=== PATIENT | male | born 1960 | race Caucasian/White ===

== ENCOUNTER → 2017-03-20 | Outpatient (CLI) | payer BC ==
[2017-03-20 19:10] LABS: LYME DISEASE AB IGG NEG (NEG); LYME DISEASE AB IGM NEG (NEG)
== END | disposition home or self-care (01) ==
LOC: C.LABSPEC 16:36
PROVIDERS: ATTEND Internal Medicine
DX: T75.89XA Other specified effects of external causes, initial encounter (principal); X58.XXXA Exposure to other specified factors, initial encounter

== ENCOUNTER 2021-09-21 16:14 | Observation (INO) ==
[2021-09-21 17:10] LABS: Basophils # (auto) 0.08 K/uL (0-0.2); Eosinophils # (auto) 0.12 K/uL (0-0.5); Eosinophils % (auto) 1.6 %; Hematocrit (blood only) 42.3 % (42-52); Lymphocytes # (auto) 1.75 K/uL (1.2-3.4); Lymphocytes % (auto) 22.7 %; Mean Corpuscular Hgb Conc 35.5 g/dL (32-36); Mean Corpuscular Volume 81.8 fL (80-100); Mean Platelet Volume 9.9 fL (7.4-10.4); Monocytes % (auto) 6.5 %; Neutrophils # (auto) 5.27 K/uL (1.4-6.5); Neutrophils % (auto) 68.2 %; Platelet Count 359 K/uL (130-400); RDW Coefficient of Variation 13.8 % (11.5-14.5); RDW Standard Deviation 41.4 fL (36.4-46.3); Red Blood Count 5.17 M/uL (4.7-6.1); White Blood Count 7.72 K/uL (4.8-10.8)
[2021-09-21 17:22] LABS: Partial Thromboplastin Time 28.8 Seconds (21.0-31.0); Prothrombin Time 10.9 Seconds (9.0-12.0)
[2021-09-21] MEDS ORDERED: ASPIRIN CHEW 324 MG PO STA (17:25)
[2021-09-21 17:33] LABS: Troponin I < 0.03 ng/ml (0-0.04)
[2021-09-21 17:34] LABS: Alanine Aminotransferase 20 U/L (7-52); Albumin Globulin Ratio 1.8 (0.9-2); Albumin Level 4.4 gm/dl (3.4-5.0); Alkaline Phosphatase 65 U/L (34-104); Anion Gap 8 (3-11); Aspartate Aminotransferase 20 U/L (13-39); BUN Creatinine Ratio 21.3 (10-20); Bilirubin,Total 0.3 mg/dl (0.2-1.0); Blood Urea Nitrogen 20 mg/dl (6-23); Calcium 9.3 mg/dl (8.5-10.1); Carbon Dioxide 26 mmol/L (21-32); Chloride 105 mmol/L (98-107); Creatinine Clr Calc Pharmacy 84.5 ml/min; Est GFR (African American) 102.4 ml/min; Est GFR (Non-African American) 88.4 ml/min; Globulin 2.5 gm/dl (2.5-4.0); Glucose 95 mg/dl (70-99(Fasting)); Lipase 47 U/L (11-82); Magnesium 2.1 mg/dl (1.7-2.4); Potassium 3.4 mmol/L (3.5-5.1); Sodium 139 mmol/L (136-145); Total Protein 6.9 gm/dl (6.0-8.3)
--- NOTE | 2021-09-21 17:34 | Emergency Department Note ---
Impression & Plan Precordial chest pain, HTN (hypertension) ED Provider Note NAME: STEFFEN COBB AGE: 60 SEX: M : 1960 ARRIVES VIA: Ambulance INFORMANT: [Patient] ED PROVIDER(S): [Grey Hebert MD] CHIEF COMPLAINT: Chest pain HISTORY OF PRESENT ILLNESS: The patient is a 60-year-old male who presents to the ER with a few minutes of left chest pain. The pain was pressure-like and a 3/10. It came on while he was sitting. He was dizzy with it. His blood pressure increased and his pulse increased. He was not short of breath, no sweating, no nausea. The patient states he is now pain-free and his blood pressure seems to be improving. The patient was recently seen by his doctors office for high blood pressure. He was started on lisinopril. He took his first dose today. He was also told that his EKG was abnormal and he is scheduled for a stress test this upcoming Friday, in 3 days. He has no known diagnosed coronary disease. REVIEW OF SYSTEMS: See HPI for pertinent positives and negatives. A total of ten systems were reviewed and were otherwise negative. PMHx/PSHx: See Below SOCIAL HISTORY: See Below. PHYSICAL EXAM: GENERAL: Patient is in no acute distress. HEENT: No acute trauma, normocephalic atraumatic, mucous membranes moist, no nasal congestion, no scleral icterus. NECK: No stridor, no adenopathy, no meningismus, trachea is midline. LUNGS: Clear to auscultation bilaterally, no wheeze, no rhonchi, breath sounds equal. HEART: Bradycardic, regular rhythm, no murmurs. ABDOMEN: Soft, nontender, bowel sounds positive, no hernias, no peritonitis. EXTREMITIES: No cyanosis or edema, full range of motion of all the joints without pain or difficulty, no signs for acute trauma. NEUROLOGIC: Oriented x 3, no acute motor or sensory deficits, no focal weakness. SKIN: No rash, no jaundice, no diaphoresis. DIFFERENTIAL DIAGNOSIS: Cardiac ischemia, aortic dissection, pulmonary embolism, pneumothorax, pneumonia, pericarditis, myocarditis, esophageal rupture, GERD, cholecystitis, pancreatitis, musculoskeletal, as well as other pathologies. EMERGENCY DEPARTMENT COURSE/PROCEDURES: ECG: Indication was chest pain. The ECG shows a sinus bradycardia with a first-degree AV block. The rate is 59. There are inverted T waves in the lateral leads. No ST elevation. No PVCs. The QTc is 421. No old ECGs available for comparison. Continuous Cardiac Monitoring: An order was placed for continuous cardiac monitoring. The monitor shows a rate of 60 with sinus rhythm with a first- degree block. MEDICAL DECISION MAKING: There is no leukocytosis or concerning anemia. There is a normal platelet count. No coagulopathy. Potassium was a bit low at 3.4, no renal failure. No concerning liver enzyme elevation. No evidence for pancreatitis. ECG showed a sinus bradycardia, there were some T wave changes noted, no ST elevation. Cardi ac enzyme testing x1 does not show any evidence for acute cardiac injury. Urinalysis does not show infection. Covid testing returned negative. Chest x- ray did not show mediastinal widening, pneumonia or pneumothorax. Patient was given oral aspirin for cardioprotective purposes. He was given IV labetalol for his higher blood pressure. The patient is in need of a hospital stay. He presents with chest pain which certainly could be cardiac in nature. He has some EKG changes. He has some car diac risk factors. I spoke with the patient, I talked to case management. The on-call hospitalist was consulted. Past Med/Surg History Medical History Allergic conjunctivitis Allergic rhinitis due to cats Allergic rhinitis due to dust Allergic rhinitis due to other allergen Cervical radiculopathy at C8 Closed fibular fracture Surgical History S/P nasal surgery S/P tonsillectomy Family History (Updated 09/21/21 @ 19:17 by DONALD Croft) Father Cerebral aneurysm, Onset Age: 56 Coronary heart disease Other Allergic rhinitis Colorectal cancer Dyslipidemia Social History Smoking Status: Never smoker Hx Alcohol Use: Yes Hx Substance Use: No Preferred Language: Arabic Communication Ability: Effective Farm Demonstrator Required: No Beliefs That Will Affect Care: None marital status: Single Current Living Situation: Alone current occupational status: employed Other Information That Helps Us Care for You: No Feels Safe at Home: Yes Assistive Devices: Glasses Allergies Allergies Allergy/AdvReac Type Severity Reaction Status Date / Time amoxicillin Allergy Unknown Unknown Verified 09/21/21 18:26 Penicillins Allergy Unknown Unknown Verified 09/21/21 18:26 thiopental [From Pentothal] Allergy Unknown Unknown Verified 09/21/21 18:26 Home Meds Home Medications Medication Instructions Recorded Confirmed fexofenadine 180 mg tablet 180 mg PO DAILY 03/21/19 08/13/21 (Tonia Allergy) omega-3 fatty acids [Fish Oil PO 03/21/19 08/13/21 Concentrate] epigallocatechin gallate(bulk) MISCELLANEOUS 04/11/20 08/13/21 [green tea extract] Previous Rx's Medication Instructions Recorded olopatadine 0.2 % eye drops 1 drops OP DAILY #2.5 ml 04/26/19 albuterol sulfate 90 mcg/actuation 2 puff INH Q4H PRN #18 gm 10/09/20 aerosol inhaler (Ventolin HFA) montelukast 10 mg tablet See Rx Instructions .ROUTE 01/08/21 .COMPLEX #30 tablet lifitegrast 5 % eye drops in a 1 drp OP BID #60 ea 04/12/21 dropperette (Xiidra) fluticasone 500 mcg-salmeterol 50 See Rx Instructions .ROUTE 07/16/21 mcg/dose blistr powdr for .COMPLEX #60 disk inhalation (Advair Diskus) Results & Data (ED) Vital Signs Vital Signs - 24 hr 09/21/21 16:23 09/21/21 16:30 09/21/21 17:00 Temperature 36.9 C Temperature Source Oral Pulse Rate 60 56 L Pulse Rate from SpO2 Sensor 56 L Respiratory Rate 12 12 Respiratory Effort / Characteristics Non-Labored Respiratory Depth Normal Respiratory Pattern Regular Blood Pressure 172/96 H 154/92 H Blood Pressure Mean 121 112 Blood Pressure Position Semi-fowlers Pulse Oximetry 98 98 97 Oxygen Delivery Method Room Air Room Air Room Air Sepsis Recent Fever Within 48 Hours No Sepsis New/Unexplained Change in Mental Status N/A Sepsis Action Taken by Nursing No Action Required 09/21/21 17:16 09/21/21 17:44 09/21/21 17:46 Temperature Temperature Source Pulse Rate 56 L 59 L Pulse Rate from SpO2 Sensor 57 L 57 L Respiratory Rate 12 18 Respiratory Effort / Characteristics Respiratory Depth Respiratory Pattern Blood Pressure 162/95 H Blood Pressure Mean 117 Blood Pressure Position Pulse Oximetry 98 96 Oxygen Delivery Method Room Air Room Air Sepsis Recent Fever Within 48 Hours Sepsis New/Unexplained Change in Mental Status Sepsis Action Taken by Nursing 09/21/21 18:00 Temperature Temperature Source Pulse Rate 56 L Pulse Rate from SpO2 Sensor 55 L Respiratory Rate 12 Respiratory Effort / Characteristics Respiratory Depth Respiratory Pattern Blood Pressure 162/88 H Blood Pressure Mean 112 Blood Pressure Position Pulse Oximetry 94 Oxygen Delivery Method Room Air Sepsis Recent Fever Within 48 Hours Sepsis New/Unexplained Change in Mental Status Sepsis Action Taken by Usp Medications Current Medication List: was personally reviewed by me Laboratory Data Attestation: I reviewed the patient's lab results. Result diagrams: 09/21/21 16:31 09/21/21 16:31 Lab Results 09/21/21 09/21/21 09/21/21 Range/Units 16:31 16:31 16:31 WBC 7.72 (4.8-10.8) K/uL RBC 5.17 (4.7-6.1) M/uL Hgb 15.0 (14.0-18.0) g/dL Hct 42.3 (42-52) % MCV 81.8 (80-100) fL MCH 29.0 (25-34) pg MCHC 35.5 (32-36) g/dL RDW Std Deviation 41.4 (36.4-46.3) fL RDW Coeff of Brenda 13.8 (11.5-14.5) % Plt Count 359 (130-400) K/uL MPV 9.9 (7.4-10.4) fL Immature Gran % (Auto) 0.0 % Neut % (Auto) 68.2 % Lymph % (Auto) 22.7 % Webster % (Auto) 6.5 % Eos % (Auto) 1.6 % Baso % (Auto) 1.0 % Neut # (Auto) 5.27 (1.4-6.5) K/uL Lymph # (Auto) 1.75 (1.2-3.4) K/uL Webster # (Auto) 0.50 (0.11-0.59) K/uL Eos # (Auto) 0.12 (0-0.5) K/uL Baso # (Auto) 0.08 (0-0.2) K/uL Immature Gran # (Auto) 0.00 (0.00-0.02) K/uL PT 10.9 (9.0-12.0) Seconds INR 1.0 (0.9-1.1) APTT 28.8 (21.0-31.0) Seconds PTT Ratio 1.0 Sodium 139 (136-145) mmol/L Potassium 3.4 L (3.5-5.1) mmol/L Chloride 105 (98-107) mmol/L Carbon Dioxide 26 (21-32) mmol/L Anion Gap 8 (3-11) BUN 20 (6-23) mg/dl Creatinine 0.94 (0.6-1.4) mg/dl Est Cr Clr Drug Dosing 84.5 ml/min Est GFR ( Amer) 102.4 ml/min Est GFR (Non-Af Amer) 88.4 ml/min BUN/Creatinine Ratio 21.3 H (10-20) Glucose 95 (70-99(Fasting)) mg/dl Calcium 9.3 (8.5-10.1) mg/dl Magnesium 2.1 (1.7-2.4) mg/dl Total Bilirubin 0.3 (0.2-1.0) mg/dl AST 20 (13-39) U/L ALT 20 (7-52) U/L Alkaline Phosphatase 65 (34-104) U/L Troponin I < 0.03 (0-0.04) ng/ml Total Protein 6.9 (6.0-8.3) gm/dl Albumin 4.4 (3.4-5.0) gm/dl Globulin 2.5 (2.5-4.0) gm/dl Albumin/Globulin Ratio 1.8 (0.9-2) Lipase 47 (11-82) U/L SARS-CoV-2, RNA, NAAT (NEGATIVE) 09/21/21 Range/Units 16:31 WBC (4.8-10.8) K/uL RBC (4.7-6.1) M/uL Hgb (14.0-18.0) g/dL Hct (42-52) % MCV (80-100) fL MCH (25-34) pg MCHC (32-36) g/dL RDW Std Deviation (36.4-46.3) fL RDW Coeff of Brenda (11.5-14.5) % Plt Count (130-400) K/uL MPV (7.4-10.4) fL Immature Gran % (Auto) % Neut % (Auto) % Lymph % (Auto) % Webster % (Auto) % Eos % (Auto) % Baso % (Auto) % Neut # (Auto) (1.4-6.5) K/uL Lymph # (Auto) (1.2-3.4) K/uL Webster # (Auto) (0.11-0.59) K/uL Eos # (Auto) (0-0.5) K/uL Baso # (Auto) (0-0.2) K/uL Immature Gran # (Auto) (0.00-0.02) K/uL PT (9.0-12.0) Seconds INR (0.9-1.1) APTT (21.0-31.0) Seconds PTT Ratio Sodium (136-145) mmol/L Potassium (3.5-5.1) mmol/L Chloride (98-107) mmol/L Carbon Dioxide (21-32) mmol/L Anion Gap (3-11) BUN (6-23) mg/dl Creatinine (0.6-1.4) mg/dl Est Cr Clr Drug Dosing ml/min Est GFR ( Amer) ml/min Est GFR (Non-Af Amer) ml/min BUN/Creatinine Ratio (10-20) Glucose (70-99(Fasting)) mg/dl Calcium (8.5-10.1) mg/dl Magnesium (1.7-2.4) mg/dl Total Bilirubin (0.2-1.0) mg/dl AST (13-39) U/L ALT (7-52) U/L Alkaline Phosphatase (34-104) U/L Troponin I (0-0.04) ng/ml Total Protein (6.0-8.3) gm/dl Albumin (3.4-5.0) gm/dl Globulin (2.5-4.0) gm/dl Albumin/Globulin Ratio (0.9-2) Lipase (11-82) U/L SARS-CoV-2, RNA, NAAT NEGATIVE (NEGATIVE) Administered Medications Montelukast Sodium (Montelukast Sodium 10 Mg Tablet) 1 mg PO HS REGINO Stop: 10/21/21 21:53 Last Admin: 09/21/21 22:31 Dose: 1 mg Documented by: [id number] Discontinued Medications Aspirin (Aspirin Chew 324 Mg) 324 mg PO NOW STA Stop: 09/21/21 17:26 Last Admin: 09/21/21 17:46 Dose: 324 mg Documented by: [id number] Labetalol HCl (Labetalol Hcl Iv 5 Mg/Ml 20ml) 10 mg IV NOW STA Stop: 09/21/21 17:47 Last Admin: 09/21/21 18:21 Dose: 10 mg Documented by: [id number] Cosigned by: [id number] Imaging Data Radiologist's Impression: Chest X-Ray 09/21/21 17:02 XR chest 1V portable HISTORY: Atypical Chest Pain COMPARISON: None. FINDINGS: The lungs are clear. The heart is mildly enlarged. No pleural effusions. No pneumothorax. No evidence for pulmonary edema. IMPRESSION: Mild cardiomegaly. ACT 112: Negative or not required by law. Electronically signed by: Ravi Varner M.D. 09/21/2021 5:37 PM Discharge Plan Visit Data Chief Complaint: Chest Pain ED Provider: Grey Hbeert Discharge Problem: Precordial chest pain, HTN (hypertension) Patient Disposition: Admitted As Inpatient Condition: Good Discharge Instructions Interventions: ED Discharge Assessment Last Done: 09/21/21 21:17
--- NOTE | 2021-09-21 17:39 | XRay Report ---
XR chest 1V portable HISTORY: Atypical Chest Pain COMPARISON: None. FINDINGS: The lungs are clear. The heart is mildly enlarged. No pleural effusions. No pneumothorax. N o evidence for pulmonary edema. IMPRESSION: Mild cardiomegaly. ACT 112: Negative or not required by law. Electronically signed by: Ravi Varner M.D. 09/21/2021 5:37 PM
[2021-09-21] MEDS ORDERED: LABETALOL HCL IV 5 MG/ML 20ML IV STA (17:46)
[2021-09-21] MEDS ORDERED: ACETAMINOPHEN 325 MG TAB PO PRN (18:13)
[2021-09-21] MEDS ORDERED: NITROGLYCERIN SL 0.4 MG/TAB TAB SL PRN (18:13)
--- NOTE | 2021-09-21 19:06 | History & Physical Report ---
Date of Service September 21, 2021 Assessment & Plan (1) Chest pain: Plan: Chest pressure associated with dizziness, increase HR and increase BP - Troponin ~ 1 hour post episode-negative - Trend Troponin I as may be early to detect - ECG with no comparison but without dyanmic ST elevation or depression - ECHO in morning - NTG SL for chest pain, ECG with chest pain (2) HTN (hypertension): Plan: Newly diagnosed HTN over the past week - started Lisinopril 10mg PO 09/21/21 - Without evidence of organ dysfunction - Agent control may be limited by his underlying HR - Trend his numbers overnight - UA now evaluate for protein in urine - Treat BP if associated with symptoms or his troponin actually increase - Patient declines that any new medications or any increase to his allergy meds. no other illness and no other use of OTC allergy/cough/cold meds (3) Asthma: Plan: Well controlled on current medications - Continue home regimine (4) Allergic rhinitis: Plan: As above History of Present Illness Primary Care Provider: Addi Page MD 60 YOM with past medical history of: Obesity, HTN (newly diagnosed), Seasonal Allergic Rhinitis, asthma. Patient comes to the EMD for complaints of chest pain. The pain was located in his left upper chest and was pressure like in nature, and was associated with some dizziness and noted increase in HR. This occurred around [id number] today. The patient felt the pressure in his chest and went to check his blood pressure and he reports it as 200/100 and noting his HR was 104. The pressure and dizziness lasted for only about a minute. He re- checked his blood pressure and it continued to be elevated so he called EMS. In the EMD he was still noted to be hypertensive >160, but remains without chest pain. He had routine labs performed to include a Troponin I, ECG, and CXR completed. We have no ECG on file for comparison. His Troponin I was negative. He was given an ASA and 10mg of Labetalol in the EMD for his BP. Patient will be observed overnight to trend his BP, lipids in morning, HGB A1c in morning and ECHO in am. The patient reports that he has overall has been feeling well, he went for a routine colonoscopy last week and was noted to be hypertensive before the procedure and following the procedure, he was referred back to his PCP Addi Earl. He reports that he went to his appointment, had an ECG done that had some changes to it, and remained hypertensive at that appointment. He was started on Lisinopril 10mg orally and took his first dose this morning 09/21/21 at 0800. The patient is active and endorses that he runs most days of the week a couple of miles, hikes up the rid[place] 2 times per week, and lefts weights as well. He does all of this without any chest pain, shortness of breath. He had a stress test performed back in 2015 that was normal, however there is no ECG tracing with this. He was also scheduled to have a stress test completed at [facility] on Friday09/24/21. Allergies Allergy/AdvReac Type Severity Reaction Status Date / Time amoxicillin Allergy Unknown Unknown Verified 09/21/21 18:26 Penicillins Allergy Unknown Unknown Verified 09/21/21 18:26 thiopental [From Pentothal] Allergy Unknown Unknown Verified 09/21/21 18:26 Home Medications Medication Instructions Recorded Confirmed Type fexofenadine 180 mg tablet 180 mg PO DAILY 03/21/19 08/13/21 History (Tonia Allergy) omega-3 fatty acids [Fish Oil PO 03/21/19 08/13/21 History Concentrate] olopatadine 0.2 % eye drops 1 drops OP DAILY #2.5 ml 04/26/19 08/13/21 Rx epigallocatechin gallate(bulk) MISCELLANEOUS 04/11/20 08/13/21 History [green tea extract] albuterol sulfate 90 mcg/actuation 2 puff INH Q4H PRN #18 gm 10/09/20 08/13/21 Rx aerosol inhaler (Ventolin HFA) montelukast 10 mg tablet See Rx Instructions .ROUTE 01/08/21 08/13/21 Rx .COMPLEX #30 tablet lifitegrast 5 % eye drops in a 1 drp OP BID #60 ea 04/12/21 08/13/21 Rx dropperette (Xiidra) fluticasone 500 mcg-salmeterol 50 See Rx Instructions .ROUTE 07/16/21 08/13/21 Rx mcg/dose blistr powdr for .COMPLEX #60 disk inhalation (Advair Diskus) aspirin 81 mg tablet,delayed 81 mg PO QAM #30 tab 09/22/21 Rx release lisinopril 10 mg tablet 10 mg PO QAM #30 tab 09/22/21 Rx Past Med/Surg History Medical History Allergic conjunctivitis Allergic rhinitis due to cats Allergic rhinitis due to dust Allergic rhinitis due to other allergen Cervical radiculopathy at C8 Closed fibular fracture Surgical History S/P nasal surgery S/P tonsillectomy Family History Father Cerebral aneurysm, Onset Age: 56 Coronary heart disease Other Allergic rhinitis Colorectal cancer Dyslipidemia Social History Smoking Status: Never smoker Hx Alcohol Use: Yes Hx Substance Use: No Preferred Language: Fijian Communication Ability: Effective Wiring Technician Required: No Beliefs That Will Affect Care: None marital status: Single Current Living Situation: Alone current occupational status: employed Feels Safe at Home: Yes Assistive Devices: Glasses Review of Systems Review of Systems: REVIEW OF SYSTEMS: Constitutional: No fever, sweats or chills Eyes: No diplopia, no worsening or blurred vision ENT: normal hearing, no trouble swallowing Respiratory: No cough, sputum, dyspnea at rest or on exertion Cardiovascular: (+) chest pain, NO tightness or palpitations Abdomen: No pain, nausea, vomiting, diarrhea or constipation Musculoskeletal: No joint pain, calf pain, swelling Neurologic: No weakness, numbness/tingling, or balance problems Psychiatric: No anxiety or depression Skin: No rash or itch Physical Exam Constitutional: PHYSICAL EXAM: General: awake, alert, no apparent distress Head: Normocephalic, atraumatic ENT: PERRL, EOMI, no pharyngeal exudate, mucous membranes moist Neuro: AAO x 3, speech clear and appropriate, strength intact bilaterally 5/5, sensation intact and equal all extremities and dermatomes, no pronator drift Chest: equal rise and fall of the chest, no accessory muscle use, no heaves or thrills, Clear to auscultation, on room air, Cardiac: Regular rate and rhythm, telemetry reviewed, skin warm dry, cap refill <3 seconds, peripheral pulses +2 no JVD, no murmur, no edema GI: NABS x 4 quadrants, soft, nontender to palpation, no rebound, guarding or tenderness : Spontaneously voiding, no pain, no CVA tenderness, Extremities: Normal inspection, no peripheral edema or erythema, calfs nontender to palpation Psych: Normal mood and affect Skin: no rash or erythema Results & Data Results & Data ([facility]) Vital Signs (Past 12 Hours) Vital Signs Temp Pulse Resp BP Pulse Ox 09/21/21 18:00 56 L 12 162/88 H 94 09/21/21 17:46 59 L 18 96 09/21/21 17:44 162/95 H 09/21/21 17:16 56 L 12 98 09/21/21 17:00 56 L 12 154/92 H 97 09/21/21 16:30 98 09/21/21 16:23 36.9 C 60 12 172/96 H 98 Laboratory Results Abnormal lab results 09/21/21 Range/Units 16:31 Potassium 3.4 L (3.5-5.1) mmol/L BUN/Creatinine Ratio 21.3 H (10-20) Diagnostic Findings Chest X-Ray 09/21/21 17:02 XR chest 1V portable HISTORY: Atypical Chest Pain COMPARISON: None. FINDINGS: The lungs are clear. The heart is mildly enlarged. No pleural effusions. No pneumothorax. No evidence for pulmonary edema. IMPRESSION: Mild cardiomegaly. ACT 112: Negative or not required by law. Electronically signed by: Ravi Varner M.D. 09/21/2021 5:37 PM Medications Administered Discontinued Medications Aspirin (Aspirin Chew 324 Mg) 324 mg PO NOW STA Stop: 09/21/21 17:26 Last Admin: 09/21/21 17:46 Dose: 324 mg Documented by: [id number] Labetalol HCl (Labetalol Hcl Iv 5 Mg/Ml 20ml) 10 mg IV NOW STA Stop: 09/21/21 17:47 Last Admin: 09/21/21 18:21 Dose: 10 mg Documented by: [id number] Cosigned by: [id number] ECG Additional Comments: Sinus pina with 1st degree AV blcok, ST & T wave abnormality HI interval 222ms QT/QTC 426/421 HR 59 Code Status & VTE Plan Code Status CODE: FULL VTE: SCDS, ambulation Supervising Physician Co-Signing Physician Notes Patient seen and examined at bedside. Obtained history and physical exam during my face to face encounter with the patient. I reviewed above note and agree with it. I discussed plan of care with JOVITA Guzmán and patient. Patient will be admitted with chest pain under observation. Will obtain serial cardiac markers. PG Care Time/CCT Total # of Minutes Spent Total Time Spent with Patient: Total time spent is greater than 50% in coordination of care (as documented) at patient's floor/unit and/or counseling patient: Coding Level of Care Code INT OBSERVATION CARE 70M LVL 3 Diagnoses HTN (hypertension) I10 Allergic rhinitis J30.9 Asthma J45.909 Chest pain R07.9
[2021-09-21 21:04] LABS: Appearance Urine Clear (Clear); Bilirubin Urine Negative (Negative); Blood Urine Negative (Negative); Color Urine Yellow; Glucose Urine UA Negative (Negative); Ketones Urine Negative (Negative); Leukocyte Esterase Urine Negative (Negative); Nitrite Urine Negative (Negative); Protein Urine Negative (Negative); Specific Gravity Urine 1.016 (1.000-1.030); Urobilinogen Urine Negative (Negative)
[2021-09-21] MEDS ORDERED: MONTELUKAST SODIUM 10 MG TABLET PO SCH (21:54)
[2021-09-21] MEDS ORDERED: ALBUTEROL HFA 8 GM INHALER INH PRN (21:54)
[2021-09-22 07:30] LABS: Troponin I < 0.03 ng/ml (0-0.04)
[2021-09-22 07:50] LABS: Estimated Average Glucose 111 mg/dl; Hemoglobin A1C 5.5 % (4.5-5.6)
[2021-09-22 08:20] LABS: Chol HDL Ratio 4.5 (0-5); Cholesterol 207 mg/dl (0-200); HDL Cholesterol 46 mg/dl; LDL Cholesterol Calculated 138 mg/dl; Triglycerides 117 mg/dl (0-150); VLDL Cholesterol 23 mg/dl (0-30)
[2021-09-22] MEDS ORDERED: ASPIRIN 81 MG ECTAB PO SCH (09:00)
[2021-09-22] MEDS ORDERED: FEXOFENADINE HCL 180 MG TAB PO SCH (09:00)
[2021-09-22] MEDS ORDERED: lisinopril 10 MG TAB PO SCH (09:00)
[2021-09-22] MEDS ORDERED: FLUTICASONE/VILANTEROL 100/25MCG 14 PUFFS/INHALER INH SCH (09:00)
--- NOTE | 2021-09-22 11:57 | Cardiology Consultation ---
Date of Consultation September 22, 2021 Assessment & Plan (1) Precordial chest pain: (2) HTN (hypertension): (3) Dyslipidemia: (4) Bradycardia: 1. Chest discomfort: His chest discomfort is quite atypical of angina, it only lasted a few minutes, came on at rest and he does not have exertional symptoms. There are no enzyme abnormalities and his electrocardiogram does not suggest ischemia or injury. He is scheduled for a stress test as an outpatient in 3 days and I recommended that he go home and have that stress test done. 2. Hypertension: He seems to have significant hypertension and his echocardiogram shows left ventricular hypertrophy. I suspect he has more hypertension that has been recognized. Agree with treatment of his blood pressure to goal. I probably would avoid negative chronotropic agents since he does seem to have a slow heart rate. 3. Dyslipidemia: He does have a slightly elevated cholesterol and a slightly elevated non-HDL cholesterol. Even in the absence of signs of atherosclerosis his 10-year heart attack or stroke risk based on the ACC/AHA risk calculator is 10.8%, with a risk of greater than 7.5% moderate to high intensity statin should be considered and above 10% aspirin should also be considered. Certainly if the stress test is abnormal these medication should definitely be started. I have not started them at this time but in his case that is a definite consideration for the future. 4. Bradycardia: He seems to have sinus bradycardia, he is not on medications to cause it (he may have had labetalol in the emergency room but that was long enough ago which should not affect his heart rate now) and may have the beginnings of sinus node dysfunction. He does not seem symptomatic however so I would not specifically treat this but I would avoid negative chronotropic medications if possible. History of Present Illness Reason for Consultation: Chest discomfort, abnormal ECG Attending Physician: Maxwell Murphy History of Present Illness This is a 60-year-old male with a history of asthma and seasonal allergies who has recently noted dyspnea on exertion. Apparently this occurs with trying to run outdoors and was felt possibly due to asthma induced by the cold. He presents now with brief chest discomfort. He does have hypertension and was recently started on losartan I believe, but only for about a day before presentation and he is not sure the medication. He describes the chest discomfort as a pressure sensation that occurred while sitting, he did have dizziness with it but was not short of breath and had no other symptoms. It only lasted a few minutes. He specifically did not have palpitations although he noted that his heart rate was higher (104) when he checked his blood pressure. His blood pressure was high at home and his blood pressure was elevated on presentation to 172/96, that decreased somewhat during his hospitalization but remained elevated until this morning's reading. He is on lisinopril 10 mg daily. Evaluation in the emergency room here included an electrocardiogram on September 21, 2021 at 1623 which showed sinus bradycardia at 59 bpm, some lateral T wave abnormalities possibly related to LVH and a prominent U wave. Another electrocardiogram done on September 22, 2021 at 528 was quite similar. Troponin measurements x4 are undetectable at less than 0.03. A cholesterol determination this morning shows a slightly high total cholesterol at 207 with an HDL of 46, his non-HDL cholesterol is therefore somewhat elevated at 161 but not terribly abnormal. An echocardiogram was done and I reviewed it in the room, he does have significant LVH, he does have aortic insufficiency but I do not see any wall motion abnormalities. Allergies Allergy/AdvReac Type Severity Reaction Status Date / Time amoxicillin Allergy Unknown Unknown Verified 09/21/21 18:26 Penicillins Allergy Unknown Unknown Verified 09/21/21 18:26 thiopental [From Pentothal] Allergy Unknown Unknown Verified 09/21/21 18:26 Home Medications Medication Instructions Recorded Confirmed Type fexofenadine 180 mg tablet 180 mg PO DAILY 03/21/19 08/13/21 History (Tonia Allergy) omega-3 fatty acids [Fish Oil PO 03/21/19 08/13/21 History Concentrate] olopatadine 0.2 % eye drops 1 drops OP DAILY #2.5 ml 04/26/19 08/13/21 Rx epigallocatechin gallate(bulk) MISCELLANEOUS 04/11/20 08/13/21 History [green tea extract] albuterol sulfate 90 mcg/actuation 2 puff INH Q4H PRN #18 gm 10/09/20 08/13/21 Rx aerosol inhaler (Ventolin HFA) montelukast 10 mg tablet See Rx Instructions .ROUTE 01/08/21 08/13/21 Rx .COMPLEX #30 tablet lifitegrast 5 % eye drops in a 1 drp OP BID #60 ea 04/12/21 08/13/21 Rx dropperette (Xiidra) fluticasone 500 mcg-salmeterol 50 See Rx Instructions .ROUTE 07/16/21 08/13/21 Rx mcg/dose blistr powdr for .COMPLEX #60 disk inhalation (Advair Diskus) Patient History Medical History Allergic conjunctivitis Allergic rhinitis due to cats Allergic rhinitis due to dust Allergic rhinitis due to other allergen Cervical radiculopathy at C8 Closed fibular fracture Surgical History S/P nasal surgery S/P tonsillectomy Family History Father Cerebral aneurysm, Onset Age: 56 Coronary heart disease Other Allergic rhinitis Colorectal cancer Dyslipidemia Social History Smoking Status: Never smoker Hx Alcohol Use: Yes Hx Substance Use: No Preferred Language: Kazakh Communication Ability: Effective Food Preparation Supervisor Required: No Beliefs That Will Affect Care: None marital status: Single Current Living Situation: Alone current occupational status: employed Other Information That Helps Us Care for You: No Feels Safe at Home: Yes Assistive Devices: Glasses Review of Systems Review of Systems: All systems reviewed & are unremarkable except as noted in HPI & below Physical Exam Physical Exam: Constitutional: Alert, cooperative and in no distress. HEENT: Unremarkable Neck: No jugular venous distention, carotid pulses are normal and equal bilaterally without bruits. Pulmonary: Clear to auscultation bilaterally. Cardiac: Regular rhythm with a soft holosystolic murmur at the apex, no gallop or rub. Abdomen: Soft, nontender with normal bowel sounds. Extremities: No edema. Distal pulses intact. Neurologic: No focal findings. Gait is steady. Skin: No rash, ecchymoses or petechiae. Results & Data ([facility]) Vital Signs (Past 12 Hours) Vital Signs Temp Pulse Pulse Resp BP BP Pulse Ox 09/22/21 09:13 49 L 09/22/21 07:29 36.6 C 49 L 18 133/81 96 09/22/21 03:50 36.5 C 58 L 18 160/81 H 96 Laboratory Results Cardiac Enzymes 09/21/21 09/21/21 09/21/21 Range/Units 16:31 19:38 22:16 AST 20 (13-39) U/L Troponin I < 0.03 < 0.03 < 0.03 (0-0.04) ng/ml 09/22/21 Range/Units 06:31 AST (13-39) U/L Troponin I < 0.03 (0-0.04) ng/ml Coagulation 09/21/21 Range/Units 16:31 PT 10.9 (9.0-12.0) Seconds APTT 28.8 (21.0-31.0) Seconds Lipids 09/22/21 Range/Units 06:31 Triglycerides 117 (0-150) mg/dl Cholesterol 207 H (0-200) mg/dl HDL Cholesterol 46 mg/dl Cholesterol/HDL Ratio 4.5 (0-5) CBC 09/21/21 Range/Units 16:31 WBC 7.72 (4.8-10.8) K/uL RBC 5.17 (4.7-6.1) M/uL Hgb 15.0 (14.0-18.0) g/dL Hct 42.3 (42-52) % Plt Count 359 (130-400) K/uL Neut # (Auto) 5.27 (1.4-6.5) K/uL Lymph # (Auto) 1.75 (1.2-3.4) K/uL Brown # (Auto) 0.50 (0.11-0.59) K/uL Eos # (Auto) 0.12 (0-0.5) K/uL Baso # (Auto) 0.08 (0-0.2) K/uL Comprehensive Metabolic Panel 09/21/21 Range/Units 16:31 Sodium 139 (136-145) mmol/L Potassium 3.4 L (3.5-5.1) mmol/L Chloride 105 (98-107) mmol/L Carbon Dioxide 26 (21-32) mmol/L BUN 20 (6-23) mg/dl Creatinine 0.94 (0.6-1.4) mg/dl Glucose 95 (70-99(Fasting)) mg/dl Calcium 9.3 (8.5-10.1) mg/dl AST 20 (13-39) U/L ALT 20 (7-52) U/L Alkaline Phosphatase 65 (34-104) U/L Total Protein 6.9 (6.0-8.3) gm/dl Albumin 4.4 (3.4-5.0) gm/dl Intake and Output 09/21/21 09/22/21 09/22/21 22:59 06:59 14:59 Intake Total 250 / 250 Balance 250 / 250 Intake: Oral 250 / 250 Other: Weight 84.3 kg 81.7 kg Weight Measurement Method Standing Scale Standing Scale Diagnostic Findings Telemetry: Sinus bradycardia with first-degree AV block, heart rate 47 to the 60s. PG Care Time/CCT Total # of Minutes Spent Total Time Spent with Patient: Total time spent is greater than 50% in coordination of care (as documented) at patient's floor/unit and/or counseling patient: Coding Level of Care Code 25456 Initial Inpt Care Lvl 3 Diagnoses Precordial chest pain R07.2 HTN (hypertension) I10 Hypertension type: unspecified Dyslipidemia E78.5 Bradycardia R00.1 (1) HTN (hypertension) Hypertension type: unspecified Qualified Code(s): I10 - Essential (primary) hypertension
--- NOTE | 2021-09-22 13:04 | Electrocardiogram Report ---
Test Reason : Blood Pressure : / mmHG Vent. Rate : 059 BPM Atrial Rate : 059 BPM P-R Int : 222 ms QRS Dur : 106 ms QT Int : 426 ms P-R-T Axes : 038 006 189 degrees QTc Int : 421 ms Sinus bradycardia with 1st degree A-V block Incomplete right bundle branch block Abnormal ECG No previous ECGs available Confirmed by Julian Anderson ([id number]) on 09/22/2021 1:04:25 PM Referred By: REFERRED SELF Confirmed By:Julian Anderson
--- NOTE | 2021-09-22 13:19 | Electrocardiogram Report ---
Test Reason : Blood Pressure : / mmHG Vent. Rate : 052 BPM Atrial Rate : 052 BPM P-R Int : 248 ms QRS Dur : 112 ms QT Int : 480 ms P-R-T Axes : 032 -10 169 degrees QTc Int : 446 ms Sinus bradycardia with 1st degree A-V block Incomplete right bundle branch block Minimal voltage criteria for LVH, may be normal variant T wave abnormality, consider lateral ischemia Abnormal ECG When compared with ECG of 21-SEP-2021 16:23, (unconfirmed) No significant change was found Confirmed by Julian Anderson ([id number]) on 09/22/2021 1:19:08 PM Referred By: REFERRED SELF Confirmed By:Julian Anderson
--- NOTE | 2021-09-22 15:46 | XCELERA ---
[id number]
--- NOTE | 2021-09-24 20:47 | Discharge Summary ---
Date of Service September 22, 2021 Admission HPI Per Admitting Provider 60 YOM with past medical history of: Obesity, HTN (newly diagnosed), Seasonal Allergic Rhinitis, asthma. Patient comes to the EMD for complaints of chest pain. The pain was located in his left upper chest and was pressure like in nature, and was associated with some dizziness and noted increase in HR. This occurred around 8121-0444 today. The patient felt the pressure in his chest and went to check his blood pressure and he reports it as 200/100 and noting his HR was 104. The pressure and dizziness lasted for only about a minute. He re- checked his blood pressure and it continued to be elevated so he called EMS. In the EMD he was still noted to be hypertensive >160, but remains without chest pain. He had routine labs performed to include a Troponin I, ECG, and CXR completed. We have no ECG on file for comparison. His Troponin I was negative. He was given an ASA and 10mg of Labetalol in the EMD for his BP. Patient will be observed overnight to trend his BP, lipids in morning, HGB A1c in morning and ECHO in am. The patient reports that he has overall has been feeling well, he went for a routine colonoscopy last week and was noted to be hypertensive before the procedure and following the procedure, he was referred back to his PCP Addi Earl. He reports that he went to his appointment, had an ECG done that had some changes to it, and remained hypertensive at that appointment. He was started on Lisinopril 10mg orally and took his first dose this morning 09/21/21 at 0800. The patient is active and endorses that he runs most days of the week a couple of miles, hikes up the ridges 2 times per week, and lefts weights as well. He does all of this without any chest pain, shortness of breath. He had a stress test performed back in 2015 that was normal, however there is no ECG tracing with this. He was also scheduled to have a stress test completed at [facility] on Friday09/24/21. Principal Diagnosis chest pain Discharge Exam General: awake, alert, no apparent distress Head: Normocephalic, atraumatic ENT: PERRL, EOMI, no pharyngeal exudate, mucous membranes moist Neuro: AAO x 3, speech clear and appropriate, strength intact bilaterally 5/5, sensation intact and equal all extremities and dermatomes, no pronator drift Chest: equal rise and fall of the chest, no accessory muscle use, no heaves or thrills, Clear to auscultation, on room air, Cardiac: Regular rate and rhythm, telemetry reviewed, skin warm dry, cap refill <3 seconds, peripheral pulses +2 no JVD, no murmur, no edema GI: NABS x 4 quadrants, soft, nontender to palpation, no rebound, guarding or tenderness : Spontaneously voiding, no pain, no CVA tenderness, Extremities: Normal inspection, no peripheral edema or erythema, calfs nontender to palpation Psych: Normal mood and affect Skin: no rash or erythema Discharge Data Allergies Allergy/AdvReac Type Severity Reaction Status Date / Time amoxicillin Allergy Unknown Unknown Verified 09/21/21 18:26 Penicillins Allergy Unknown Unknown Verified 09/21/21 18:26 thiopental [From Pentothal] Allergy Unknown Unknown Verified 09/21/21 18:26 Consultations 09/22/21 10:08 Consult Cardiology Routine Hospital Course (1) Chest pain: Chest pressure associated with dizziness, increase HR and increase BP - Troponin was neative. -plan for stress test on friday -chest pain appears atypical -appreciate input from cardio. (2) HTN (hypertension): Newly diagnosed HTN over the past week - started Lisinopril 10mg PO 09/21/21 - Without evidence of organ dysfunction - Agent control may be limited by his underlying HR - Trend his numbers overnight - UA now evaluate for protein in urine - Treat BP if associated with symptoms or his troponin actually increase - Patient declines that any new medications or any increase to his allergy meds. no other illness and no other use of OTC allergy/cough/cold meds (3) Asthma: Well controlled on current medications - Continue home regimine (4) Allergic rhinitis: As above Total Time Total Time Spent Total Time Spent (In Minutes): 32 Discharge Plan Discharge Items Patient Disposition: Home - Self-Care Reason For Visit: CHEST PAIN, HTN Discharge Diagnosis: chest pain Condition on Discharge: Good Activity: Resume your previous activity Non-emergency contact: Primary Care Provider Call non-emergency contact if: you have any medication questions Follow-up/Referrals: Addi Page MD [Primary Care Provider] - (PLEASE CALL YOUR PRIMARY CARE PROVIDER'S OFFICE TO SCHEDULE A DISCHARGE FOLLOW-UP APPOINTMENT WITHIN 7-10 DAYS.) Diet: Heart Healthy Addtl Attending Provider Instructions: stress test Friday. Pending Studies at Discharge: No Stand-Alone Forms: [facility], Smoking Cessation Medications and DC Order Prescriptions: New aspirin 81 mg Tablet,Delayed Release (Dr/Ec) 81 mg PO QAM Qty: 30 RF: 0 lisinopril 10 mg Tablet 10 mg PO QAM Qty: 30 RF: 0 Continued montelukast 10 mg tablet See Rx Instructions .ROUTE .COMPLEX Qty: 30 RF: 11 fluticasone propion-salmeterol [Advair Diskus] 500-50 mcg/dose blister with device See Rx Instructions .ROUTE .COMPLEX Qty: 60 RF: 11 Xiidra 5 % dropperette 1 drp OP BID Qty: 60 RF: 11 epigallocatechin gallate(bulk) miscellaneous RF: 0 albuterol sulfate [Ventolin HFA] 90 mcg/actuation HFA aerosol inhaler 2 puff INH Q4H PRN (Reason: shortness of breath or wheezing) Qty: 18 RF: 11 fexofenadine [Tonia Allergy] 180 mg tablet 180 mg PO DAILY RF: 0 omega-3 fatty acids PO RF: 0 olopatadine 0.2 % drops 1 drops OP DAILY Qty: 2.5 RF: 11 Discharge Orders: Discharge Order (Routine); Ordered 09/22/21 Ordered By: Maxwell Murphy Admission Data Admit Date/Time: 09/21/21 18:13 Attending Provider: Maxwell Murphy Admit Provider: Maxwell Murphy Primary Care Provider: Addi Page Other Providers: Janes Dean ; Dillan Crews ; Chapin Mazariegos ; Smith Acosta ; Andrew Hardin ; Husam Benitez ; Chayo Batista ; Anne Spencer ; Zeus Montgomery ; Rasheed Estes ; Jacobo Barahona ; Julian Anderson ; Dwight Whitfield ; Marin Billings ; Lilibeth Rodgers ; Portillo Wilkes ; Linda Maharaj ; Leroy Samson Jr Other Interventions: Discharge Summary Assessment (RN) Last Done: 09/22/21 14:48 Coding Level of Care Code 28430 OBS Care - Discharge Diagnoses Chest pain R07.9 HTN (hypertension) I10 Hypertension type: unspecified Asthma J45.909 Allergic rhinitis J30.9
== END 2021-09-22 15:22 | disposition home or self-care (01) ==
LOC: 2W 16:14 → ED 16:14 → 2W 21:17